=== PATIENT | male | born 1940 | race Caucasian/White ===

== ENCOUNTER 2017-11-17 08:32 | Emergency (ER) | payer BC, MEDICARE ==
[~2017-11-17] VITALS: Ht 180.3 cm; Wt 90.0 kg
[~2017-11-17 08:32] MED LIST: ATOR20TA PO; COU5T PO; DONE5TAB3 PO; METF-504 PO; UBID50TA3 PO; [UNRECOGNIZED DRUG - CODE] PO
[2017-11-17 09:19] LABS: BASOPHILS % (AUTO) 0.4 % (0-1); EOSINOPHILS % (AUTO) 0.3 % (0-6); HEMATOCRIT 40.3 % (42.0-52.0); HEMOGLOBIN 14.2 g/dl (14.0-17.9); LYMPHOCYTES # (AUTO) 0.7 X10'3 (1.1-4.8); LYMPHOCYTES % (AUTO) 10.4 % (21-51); MEAN CORPUSCULAR HGB CONC 35.2 % (33.0-36.5); MEAN CORPUSCULAR VOLUME 88.1 FL (78-98); MONOCYTES # (AUTO) 0.5 X10'3 (0-0.9); MONOCYTES % (AUTO) 6.7 % (2-12); NEUTROPHILS # (AUTO) 5.9 X10'3 (1.8-7.7); NEUTROPHILS % (AUTO) 82.2 % (42-75); PLATELET COUNT 165 X10'3 (140-440); RED BLOOD COUNT 4.57 X10'6 (4.70-6.10); RED CELL DISTRIBUTION WIDTH 13.7 % (11.5-14.5); WHITE BLOOD COUNT 7.2 X10'3 (4.5-11.0)
[2017-11-17 09:36] LABS: ALANINE AMINOTRANSFERASE 37 U/L (12-78); ALBUMIN 3.7 G/DL (3.4-5.0); ALBUMIN/GLOBULIN RATIO 1.2 (1.1-1.5); ALKALINE PHOSPHATASE 57 IU/L (46-116); ANION GAP 12 (8-16); ASPARTATE AMINO TRANSFERASE 25 U/L (10-37); BILIRUBIN,TOTAL 0.7 MG/DL (0.1-1.0); BLOOD UREA NITROGEN 17 MG/DL (7-18); BUN/CREATININE RATIO 12.1 (5.4-32.0); CHLORIDE 104 MMOL/L (99-107); CREATININE 1.41 MG/DL (0.60-1.10); GLUCOSE 106 MG/DL (70-104); POTASSIUM 4.1 MMOL/L (3.5-5.1); SODIUM 142 MMOL/L (135-145); TOTAL CARBON DIOXIDE 25.9 MMOL/L (24-32); TOTAL PROTEIN 6.9 G/DL (6.4-8.2); eGFR 49 ML/MIN
[2017-11-17 10:42] LABS: CLARITY,URINE CLEAR (Clear); COLOR,URINE DARK YELLOW (Yellow); GLUCOSE, URINE NEGATIVE (Neg); KETONES,URINE 15 mg/dl (Neg); LEUKOCYTE ESTERASE ,URINE NEGATIVE (Neg); NITRITES, URINE NEGATIVE (Neg); OCCULT BLOOD,URINE NEGATIVE (Neg); PH,URINE 5.5 (4.8-8.0); PROTEIN,URINE TRACE mg/dl (Neg); UA COLLECTION TYPE STRAIGHT CATH; UROBILINOGEN,URINE 0.2 E.U/dL (0.2-1.0)
[2017-11-17 10:48] LABS: BACTERIA,URINE NONE SEEN /HPF (Neg); MUCUS STRANDS FEW /LPF (Neg); RBC,URINE NONE SEEN /HPF (0-2); SQUAMOUS EPITHELIAL CELL,UR FEW /LPF (FEW); WBC,URINE NONE SEEN /HPF (0-4)
[2017-11-17] MEDS ORDERED: normal saline 1000ML IV soln IVB ONE (10:50)
[2017-11-17 14:42] VITALS: BP 150/58
== END 2017-11-17 14:54 | disposition home or self-care (01) ==
LOC: ER 08:33
DX: F03.90 Unspecified dementia, unspecified severity, without behavioral disturbance, psychotic disturbance, mood disturbance, and anxiety (principal); E86.0 Dehydration
CPT/HCPCS: 36415; 70450; 80053; 81001; 85025; 96360; 96361; 99285; A4353; J7030

== ENCOUNTER 2018-11-04 09:14 | Inpatient (IN) | payer MEDICARE | END 2018-11-13 15:16 | LOC: ER 09:14 → ED HOLD 15:22 → SUR 3N 20:20 | DX: J69.0 Pneumonitis due to inhalation of food and vomit (principal); G93.41 Metabolic encephalopathy; N17.9 Acute kidney failure, unspecified; N39.0 Urinary tract infection, site not specified; E86.0 Dehydration; I10 Essential (primary) hypertension; E78.5 Hyperlipidemia, unspecified; E11.51 Type 2 diabetes mellitus with diabetic peripheral angiopathy without gangrene; K59.00 Constipation, unspecified; G30.9 Alzheimer's disease, unspecified; F02.80 Dementia in other diseases classified elsewhere, unspecified severity, without behavioral disturbance, psychotic disturbance, mood disturbance, and anxiety ==

== ENCOUNTER 2019-11-09 23:50 | Inpatient (IN) | payer MEDICARE, MEDICAID ==
[~2019-11-09] VITALS: Ht 182.9 cm; Wt 75.7 kg
[~2019-11-09 23:50] MED LIST changes: +AREDS 2 PO; +CHOL10002 PO; -COU5T PO; +GLYB1TAB39 PO; +LISI-600 PO; +MEMA28CA PO; -METF-504 PO; -[UNRECOGNIZED DRUG - CODE] PO
[2019-11-10] MEDS ORDERED: CefTRIAXone 2gm/D5W 50ml 50 ML IV ONE
[2019-11-10] MEDS ORDERED: normal saline 1000ML IV soln IV ONE
[2019-11-10 00:50] LABS: BASOPHILS # (AUTO) 0.2 X10'3 (0-0.2); BASOPHILS % (AUTO) 0.8 % (0-1); EOSINOPHILS # (AUTO) 0.1 X10'3 (0-0.9); EOSINOPHILS % (AUTO) 0.4 % (0-6); HEMATOCRIT 45.4 % (42.0-52.0); HEMOGLOBIN 14.4 g/dl (14.0-17.9); LYMPHOCYTES # (AUTO) 1.3 X10'3 (1.1-4.8); LYMPHOCYTES % (AUTO) 6.3 % (21-51); MEAN CORPUSCULAR HEMOGLOBIN 29.9 PG (27.0-31.0); MEAN CORPUSCULAR HGB CONC 31.8 g/dL (33.0-36.5); MEAN CORPUSCULAR VOLUME 94.1 FL (78-98); MEAN PLATELET VOLUME 10.7 FL (7.4-10.4); MONOCYTES # (AUTO) 1.2 X10'3 (0-0.9); MONOCYTES % (AUTO) 6.2 % (2-12); NEUTROPHILS % (AUTO) 86.3 % (42-75); PLATELET COUNT 231 X10'3 (140-440); RED BLOOD COUNT 4.83 X10'6 (4.70-6.10); RED CELL DISTRIBUTION WIDTH 13.5 % (11.5-14.5); WHITE BLOOD COUNT 19.7 X10'3 (4.5-11.0)
[2019-11-10 00:58] LABS: ALANINE AMINOTRANSFERASE 38 U/L (12-78); ALBUMIN/GLOBULIN RATIO 0.8 (1.1-1.5); ALKALINE PHOSPHATASE 69 IU/L (46-116); ANION GAP 12 (8-16); ASPARTATE AMINO TRANSFERASE 20 U/L (10-37); BILIRUBIN,TOTAL 0.8 MG/DL (0.1-1.0); BLOOD UREA NITROGEN 72 MG/DL (7-18); BUN/CREATININE RATIO 27.8 (5.4-32.0); CALCIUM 9.2 MG/DL (8.5-10.1); CHLORIDE 113 MMOL/L (99-107); CREATININE 2.59 MG/DL (0.60-1.10); POTASSIUM 4.5 MMOL/L (3.5-5.1); SODIUM 149 MMOL/L (135-145); TOTAL CARBON DIOXIDE 23.8 MMOL/L (24-32); TOTAL PROTEIN 6.7 G/DL (6.4-8.2); eGFR 24 ML/MIN
[2019-11-10 01:01] LABS: PARTIAL THROMBOPLASTIN TIME 20 SECONDS (22-32)
[2019-11-10 01:12] LABS: GLUCOSE 919 MG/DL (70-104)
[2019-11-10] MEDS ORDERED: potassium CL 20mEq in D5-1/2NS 1,000 ML IV PRN (01:33)
[2019-11-10] MEDS ORDERED: potassium CL 10mEq/100ml bag 100 ML IV PRN ×2 (01:35)
[2019-11-10] MEDS ORDERED: sodium phosphate inj. 15 MMOL in dextrose 5%-water 250 ML IV PRN (01:35)
[2019-11-10] MEDS ORDERED: insulin regular, human vial - multi-dose IV PRN (01:35)
[2019-11-10] MEDS ORDERED: potassium Cl 20 mEq SR tablet PO PRN (01:35)
[2019-11-10] MEDS ORDERED: sodium phosphate inj. 30 MMOL in dextrose 5%-water 250 ML IV PRN (01:35)
[2019-11-10] MEDS ORDERED: Neutra Phos packet PO PRN (01:35)
[2019-11-10] MEDS ORDERED: insulin regular, human 10 units/0.1 ml syringe IV ONE ×2 (01:55→04:15)
[2019-11-10] MEDS: Insulin Reg/NS 100units/100mL 100 ML IV SCH ×2 (02:04→15:42)
[2019-11-10 02:15] LABS: MAGNESIUM 2.7 MG/DL (1.5-2.4); PHOSPHORUS 4.3 MG/DL (2.3-4.5)
[2019-11-10 02:17] LABS: CLARITY,URINE CLEAR (Clear); COLOR,URINE YELLOW (Yellow); GLUCOSE, URINE >=1000 mg/dl (Neg); KETONES,URINE NEGATIVE (Neg); LEUKOCYTE ESTERASE ,URINE NEGATIVE (Neg); NITRITES, URINE NEGATIVE (Neg); OCCULT BLOOD,URINE NEGATIVE (Neg); PH,URINE 5.5 (4.8-8.0); PROTEIN,URINE NEGATIVE (Neg); UROBILINOGEN,URINE 0.2 E.U/dL (0.2-1.0)
[2019-11-10 02:20] LABS: UA COLLECTION TYPE STRAIGHT CATH
[2019-11-10 02:29] LABS: BACTERIA,URINE NONE SEEN /HPF (Neg); MUCUS STRANDS NONE SEEN /LPF (Neg); RBC,URINE 0-2 /HPF (0-2); SQUAMOUS EPITHELIAL CELL,UR NONE SEEN /LPF (FEW); WBC,URINE 0-4 /HPF (0-4)
[2019-11-10] MEDS ORDERED: fentaNYL/PF 50MCG/1 ML 2ML syringe IV ONE (02:30)
--- NOTE | 2019-11-10 02:59 | NUR ---
Spoke with Emilie at [facility]. Pt has not been on medications for diabetes, or had regular blood sugar checks since November 2018. Pt also takes pills crushed in applesauce or pudding.
[2019-11-10] MEDS ORDERED: normal saline 1000ml 1,000 ML IVB ONE (03:17)
[2019-11-10] MEDS ORDERED: mag hydrox/Alum hydrox/simeth 30ml oral suspension PO PRN (03:20)
[2019-11-10] MEDS ORDERED: magnesium hydroxide 30ml (MOM) UD suspension PO PRN (03:20)
[2019-11-10] MEDS ORDERED: acetaminophen 325mg tablet PO PRN (03:20)
[2019-11-10] MEDS ORDERED: ondansetron/PF 4mg/2ml inj IV PRN (03:20)
[2019-11-10] MEDS ORDERED: dextrose 50%-water 50ml dispensing syringe IV PRN ×2 (03:25)
[2019-11-10] MEDS ORDERED: MESSAGE TO PHARMACY PO ONE (03:25)
[2019-11-10] MEDS ORDERED: glucagon, human recombinant 1mg kit SUBCUT PRN (03:25)
[2019-11-10] MEDS ORDERED: dextrose ORAL solution 15 GM/59 ML bottle PO PRN ×2 (03:25)
[2019-11-10] MEDS: normal saline 1000ml 1,000 ML IV SCH ×3 (05:58→23:19)
--- NOTE | 2019-11-10 06:20 | NUR ---
PT'S SON ARRIVES AT BEDSIDE.
--- NOTE | 2019-11-10 06:52 | NUR ---
Patient in room ED 14. I have received report from GRAYSON Townsend and had the opportunity to ask questions. Awaiting pt's arrival to PCU room 3025Y.
--- NOTE | 2019-11-10 07:10 | NUR ---
Pt arrived via gurney from ED with pt's son at bedside. Pt transferred in to bed using yessenia tube with 4 person assist. Vital signs obtained. Pt arrived wearing brief wet with urine, gina care performed. Will continue to closely monitor.
[2019-11-10 07:25] VITALS: BP 95/59
[2019-11-10] MEDS: K and/or MAG REPLACEMENT MC SCH ×2 (08:00→19:05)
[2019-11-10] MEDS ORDERED: AREDS PO SCH (08:00)
[2019-11-10] MEDS: vitamin D (cholecalciferol) 1,000 unit tablet PO SCH (08:55)
[2019-11-10] MEDS: donepezil 5mg tablet PO SCH (08:55)
[2019-11-10] MEDS: heparin, porcine 5000 units/ml vial SQ SCH ×2 (08:55→19:30)
--- NOTE | 2019-11-10 09:45 | NUR ---
Dr. Nielson at bedside. Orders received for pureed diet, wound care consult, social work program coordinator consult. MD discussed code status with pt's son, MD stated she would change pt's code status from full to DNR.
[2019-11-10 11:00] VITALS: BP 106/55
--- NOTE | 2019-11-10 12:04 | NUR ---
Glucometer not scanning, downtime form utilized from [id number], results faxed to lab.
[2019-11-10] MEDS ORDERED: HYDR-3965 PO (13:06)
[2019-11-10] MEDS ORDERED: SENN1TAB61 PO (13:07)
[2019-11-10] MEDS ORDERED: ACET-895 PO (13:10)
[2019-11-10] MEDS ORDERED: LACT1CAP65 PO (13:10)
[2019-11-10] MEDS ORDERED: [UNRECOGNIZED DRUG - CODE] EACHEYE (13:16)
--- NOTE | 2019-11-10 13:48 | NUR ---
Performed bladder scan on pt, 557mL urine found. Will notify MD. No voids since arriving on floor at 0710.
[2019-11-10 15:00] VITALS: BP 123/60
--- NOTE | 2019-11-10 15:02 | NUR ---
DM Consult: A1C 9.6. Pt admit w/ GLU 919 from [facility] not receiving insulin hx T2DM DX hyperosmolar hyperglycemia per MD. On insulin drip w/ GLU down to 153 from admit. Placed on carb controlled/pureed diet hx pureed diet at [facility] per EMR. RD recommended ASSEMBLER DC FIELD RING BSS given hx. PO 25% first meal this AM. Pending physical assessment. Pt not appropriate for DM ed given hx. Will continue to monitor. Rec: 1. continue carb controlled/pureed diet; pending ASSEMBLER DC FIELD RING BSS recs 2. monitor for ONS needs pending PO hx 3. bowel care as needed 4. wt per rx Addendum: 11/10/19 at [address] Amended: Links added.
--- NOTE | 2019-11-10 18:14 | NUR ---
Problems reprioritized. Patient report given, questions answered & plan of care reviewed with GRAYSON Pitts.
--- NOTE | 2019-11-10 18:35 | NUR ---
Patient in room PCU 3022Q. I have received report from GRAYSON Pope and had the opportunity to ask questions and assume patient care. Insulin gtt infusing at 3.5 mL/hr, NS infusing at 100 mL/hr per provider order. Will continue to monitor closely.
[2019-11-10 18:58] VITALS: BP 113/59
[2019-11-10] MEDS: lactobacillus rhamnosus 10,000 MMU CELLS/CAPSULE PO SCH (19:31)
[2019-11-10] MEDS: lisinopril 5mg tablet PO SCH (19:31)
[2019-11-10] MEDS: atorvastatin 20mg tablet PO SCH (20:34)
[2019-11-10] MEDS ORDERED: VIT1CAPS46 PO (20:47)
[2019-11-10] MEDS ORDERED: insulin glargine (Lantus) pen - multi-dose SQ SCH (21:00)
[2019-11-10 23:00] VITALS: BP 119/60
[2019-11-11] VITALS (7 sets, daily range): BP systolic 96–154; BP diastolic 43–86
[2019-11-11] MEDS: CefTRIAXone 2gm/D5W 50ml 50 ML IV SCH (00:42)
[2019-11-11 06:00] LABS: BASOPHILS # (AUTO) 0.1 X10'3 (0-0.2); BASOPHILS % (AUTO) 0.5 % (0-1); EOSINOPHILS # (AUTO) 0.4 X10'3 (0-0.9); HEMATOCRIT 34.6 % (42.0-52.0); HEMOGLOBIN 11.7 g/dl (14.0-17.9); LYMPHOCYTES # (AUTO) 1.9 X10'3 (1.1-4.8); LYMPHOCYTES % (AUTO) 16.2 % (21-51); MEAN CORPUSCULAR HEMOGLOBIN 30.4 PG (27.0-31.0); MEAN CORPUSCULAR HGB CONC 33.8 g/dL (33.0-36.5); MEAN PLATELET VOLUME 10.6 FL (7.4-10.4); MONOCYTES # (AUTO) 0.6 X10'3 (0-0.9); MONOCYTES % (AUTO) 5.2 % (2-12); NEUTROPHILS # (AUTO) 8.7 X10'3 (1.8-7.7); NEUTROPHILS % (AUTO) 75.1 % (42-75); PLATELET COUNT 144 X10'3 (140-440); RED BLOOD COUNT 3.84 X10'6 (4.70-6.10); RED CELL DISTRIBUTION WIDTH 13.4 % (11.5-14.5); WHITE BLOOD COUNT 11.6 X10'3 (4.5-11.0)
[2019-11-11 06:07] LABS: ALANINE AMINOTRANSFERASE 26 U/L (12-78); ALBUMIN/GLOBULIN RATIO 0.6 (1.1-1.5); ALKALINE PHOSPHATASE 44 IU/L (46-116); ANION GAP 6 (8-16); ASPARTATE AMINO TRANSFERASE 35 U/L (10-37); BILIRUBIN,TOTAL 0.2 MG/DL (0.1-1.0); BLOOD UREA NITROGEN 34 MG/DL (7-18); BUN/CREATININE RATIO 24.1 (5.4-32.0); CALCIUM 7.8 MG/DL (8.5-10.1); CHLORIDE 126 MMOL/L (99-107); CREATININE 1.41 MG/DL (0.60-1.10); GLUCOSE 153 MG/DL (70-104); POTASSIUM 3.3 MMOL/L (3.5-5.1); TOTAL PROTEIN 5.2 G/DL (6.4-8.2); eGFR 49 ML/MIN
[2019-11-11 06:10] LABS: SODIUM 158 MMOL/L (135-145)
--- NOTE | 2019-11-11 06:14 | NUR ---
Patient in room PCU 3026. I have received report from GRAYSON Pitts and had the opportunity to ask questions and assume patient care.
--- NOTE | 2019-11-11 06:15 | NUR ---
PAGER ID: [phone] MESSAGE: Ext. [phone], GRAYSON Pitts. [id number] 78 yo M admitted for metabolic encephalopathy has critical sodium of 150. NS infusing at 100 mL/hr and insulin at 3 U/hr. Do you want to increase the NS?
[2019-11-11] MEDS ORDERED: glucagon, human recombinant 1mg kit SUBCUT PRN (06:30)
[2019-11-11] MEDS ORDERED: dextrose ORAL solution 15 GM/59 ML bottle PO PRN ×2 (06:30)
[2019-11-11] MEDS ORDERED: insulin Lispro (HumaLOG) vial - multi-dose SQ SCH (06:30)
[2019-11-11] MEDS ORDERED: dextrose 50%-water 50ml dispensing syringe IV PRN ×2 (06:30)
[2019-11-11] MEDS: lisinopril 5mg tablet PO SCH ×2 (08:00→20:00)
[2019-11-11] MEDS: K and/or MAG REPLACEMENT MC SCH ×2 (08:00→20:00)
[2019-11-11] MEDS: heparin, porcine 5000 units/ml vial SQ SCH ×2 (08:47→20:41)
[2019-11-11] MEDS: lactobacillus rhamnosus 10,000 MMU CELLS/CAPSULE PO SCH ×2 (08:47→20:41)
[2019-11-11] MEDS: potassium Cl 20 mEq SR tablet PO PRN ×3 (08:47→20:43)
[2019-11-11] MEDS: vitamin D (cholecalciferol) 1,000 unit tablet PO SCH (08:47)
[2019-11-11] MEDS: donepezil 5mg tablet PO SCH (08:47)
--- NOTE | 2019-11-11 08:58 | NUR ---
Humalog insulin on hold when scanned. Called and spoke to pharmacist Rick to determine why it was held, insulin infusion protocol for PCU states to administer HumaLog after pt eats meals. Pharmacist stated he would remove the hold.
[2019-11-11] MEDS: normal saline 1000ml 1,000 ML IV SCH (09:19)
[2019-11-11] MEDS: insulin Lispro (HumaLOG) vial - multi-dose SQ SCH ×3 (09:19→18:52)
--- NOTE | 2019-11-11 10:05 | NUR ---
Dr. Nielson at bedside. informed of elevated sodium level. Orders received to change IV fluids from NS to D5W at 100mL/hr and to keep pt on insulin gtt.
[2019-11-11] MEDS: dextrose 5%-water 1,000 ML IV SCH ×3 (10:37→22:21)
--- NOTE | 2019-11-11 15:38 | NUR ---
Michael trigger: Pt documented with michael of 12, no edema, skin intact. Pt eating fair on pureed carb controlled diet with nectar thick liquids, PO intake 50-75% avg meals with max assist. Pt currently documented as confused and AOx1, likely contributing to fluctuating PO intake. LBM 2/10. Will continue to follow. DM Consult: A1C 9.6. Pt admit w/ GLU 919 from [facility] not receiving insulin hx T2DM DX hyperosmolar hyperglycemia per MD. On insulin drip w/ GLU down to 153 from admit. Placed on carb controlled/pureed diet hx pureed diet at [facility] per EMR. RD recommended BILINGUAL EXECUTIVE ASSISTANT BSS given hx. PO 25% first meal this AM. Pending physical assessment. Pt not appropriate for DM ed given hx. Will continue to monitor. Rec: 1. continue carb controlled/pureed diet with nectar thick liquids per ST recs 2. monitor for ONS needs 3. bowel care as needed 4. wt per rx Addendum: 11/11/19 at 1538 by Wing Danielle LARA Amended: Links added. Addendum: 11/11/19 at [address] RD Approves
--- NOTE | 2019-11-11 16:05 | NUR ---
Calderon Nielson re converting pt from insulin gtt to hyperglycemic protocol. Per insulin gtt protocol, after pt eating for 24 hours, discontinuing insulin gtt to be considered. PAGER ID: [phone] MESSAGE: Pt Kan Velasquez in [id number]. Consider D/C insulin gtt & putting on diabetic protocol now? thanks! Toshia GALICIA [phone] Addendum: 11/11/19 at 1701 by Heather Flores RN Dr. Nielson telephoned back. Order received to continue insulin gtt and D5W.
[2019-11-11] MEDS: memantine hcl 7mg SR capsule (24-hr) PO SCH (16:19)
[2019-11-11] MEDS: tetrahydrozoline 0.05% 15ml ophthalmic drops EACHEYE SCH ×2 (16:19→21:59)
--- NOTE | 2019-11-11 16:19 | NUR ---
Memantine & eye gtts administered late due to late arrival from pharmacy.
[2019-11-11] MEDS: Insulin Reg/NS 100units/100mL 100 ML IV SCH ×2 (17:33→22:18)
--- NOTE | 2019-11-11 18:05 | NUR ---
Patient in room PCU 3022w. I have received report from GRAYSON Pope and had the opportunity to ask questions and assume patient care. Patient on 2L NC and stable at this time. Insulin gtt infusing at 6.4 per standard insulin protocol. Will continue to monitor closely.
--- NOTE | 2019-11-11 18:13 | NUR ---
Problems reprioritized. Patient report given, questions answered & plan of care reviewed with GRAYSON Pitts.
[2019-11-11] MEDS ORDERED: [UNRECOGNIZED DRUG - OTHER] PO SCH (20:00)
[2019-11-11] MEDS: atorvastatin 20mg tablet PO SCH (20:42)
[2019-11-11] MEDS: acetaminophen 325mg tablet PO SCH (20:42)
[2019-11-11] MEDS ORDERED: insulin glargine (Lantus) pen - multi-dose SQ SCH (21:00)
[2019-11-11] MEDS ORDERED: sennosides/docusate sodium tablet PO SCH (21:00)
[2019-11-11] MEDS ORDERED: HYDROcodone/acetaminophen 5mg/325mg tablet PO SCH (21:00)
--- NOTE | 2019-11-11 22:01 | NUR ---
Per standard insulin gtt protocol, LANTUS to be started 24 hours after beginning to eat. 24 hour mode passed at noon today; per Dr. Nielson, will keep on insulin gtt, as stated by day shift RN. Did not administer 2100 dose of Lantus per protocol/ provider. Will continue to monitor closely.
--- NOTE | 2019-11-12 | NUR ---
PAGER ID: [phone] MESSAGE: Ext. [phone], GRAYSON Pitts for [id number] 78 y/o M admitted for metabolic encephalopathy. On insulin gtt at 11 U/hr c D5w at 100 mL/hr. Critical blood glucose of 39. Stopped drip and pushed 50 mL d50
[2019-11-12] MEDS: CefTRIAXone 2gm/D5W 50ml 50 ML IV SCH (00:33)
[2019-11-12 02:47] VITALS: BP 126/66
[2019-11-12 04:52] LABS: BASOPHILS # (AUTO) 0.1 X10'3 (0-0.2); BASOPHILS % (AUTO) 0.7 % (0-1); EOSINOPHILS # (AUTO) 0.3 X10'3 (0-0.9); EOSINOPHILS % (AUTO) 3.4 % (0-6); HEMATOCRIT 32.4 % (42.0-52.0); HEMOGLOBIN 11.2 g/dl (14.0-17.9); LYMPHOCYTES # (AUTO) 2.1 X10'3 (1.1-4.8); LYMPHOCYTES % (AUTO) 23.9 % (21-51); MEAN CORPUSCULAR HEMOGLOBIN 30.8 PG (27.0-31.0); MEAN CORPUSCULAR HGB CONC 34.6 g/dL (33.0-36.5); MEAN PLATELET VOLUME 10.2 FL (7.4-10.4); MONOCYTES # (AUTO) 0.4 X10'3 (0-0.9); MONOCYTES % (AUTO) 5.1 % (2-12); NEUTROPHILS # (AUTO) 5.8 X10'3 (1.8-7.7); NEUTROPHILS % (AUTO) 66.9 % (42-75); PLATELET COUNT 125 X10'3 (140-440); RED BLOOD COUNT 3.64 X10'6 (4.70-6.10); WHITE BLOOD COUNT 8.7 X10'3 (4.5-11.0)
[2019-11-12 05:16] LABS: ALANINE AMINOTRANSFERASE 23 U/L (12-78); ALBUMIN 1.8 G/DL (3.4-5.0); ALBUMIN/GLOBULIN RATIO 0.6 (1.1-1.5); ALKALINE PHOSPHATASE 41 IU/L (46-116); ANION GAP 8 (8-16); ASPARTATE AMINO TRANSFERASE 26 U/L (10-37); BILIRUBIN,TOTAL 0.2 MG/DL (0.1-1.0); BLOOD UREA NITROGEN 23 MG/DL (7-18); BUN/CREATININE RATIO 21.5 (5.4-32.0); CALCIUM 7.6 MG/DL (8.5-10.1); CHLORIDE 119 MMOL/L (99-107); CREATININE 1.07 MG/DL (0.60-1.10); GLUCOSE 125 MG/DL (70-104); POTASSIUM 3.4 MMOL/L (3.5-5.1); SODIUM 149 MMOL/L (135-145); TOTAL CARBON DIOXIDE 22.3 MMOL/L (24-32); TOTAL PROTEIN 4.9 G/DL (6.4-8.2); eGFR 67 ML/MIN
--- NOTE | 2019-11-12 06:36 | NUR ---
Problems reprioritized. Patient report given, questions answered & plan of care reviewed with GRAYSON García and Donna Student Nurse.
[2019-11-12 07:00] VITALS: BP 114/69
--- NOTE | 2019-11-12 07:49 | NUR ---
Page sent to Dr. Busch regarding patients hand PAGER ID: [phone] MESSAGE: re [phone] Kan Velasquez Pts right hand swollen, discolored, cool to touch, pulses unequal. Can you please come evaluate? Raquel Uribe [phone] Addendum: 11/12/19 at 0757 by Raquel Zacarias RN New telephone order for arterial ultrasound.
[2019-11-12] MEDS: K and/or MAG REPLACEMENT MC SCH (08:00)
[2019-11-12] MEDS: lactobacillus rhamnosus 10,000 MMU CELLS/CAPSULE PO SCH (09:04)
[2019-11-12] MEDS: insulin Lispro (HumaLOG) vial - multi-dose SQ SCH ×2 (09:05→13:15)
[2019-11-12] MEDS: heparin, porcine 5000 units/ml vial SQ SCH (09:06)
[2019-11-12] MEDS: tetrahydrozoline 0.05% 15ml ophthalmic drops EACHEYE SCH ×2 (09:06→13:15)
[2019-11-12] MEDS: acetaminophen 325mg tablet PO SCH (09:06)
[2019-11-12] MEDS: lisinopril 5mg tablet PO SCH (09:07)
[2019-11-12] MEDS: memantine hcl 7mg SR capsule (24-hr) PO SCH (09:07)
[2019-11-12] MEDS: vitamin D (cholecalciferol) 1,000 unit tablet PO SCH (09:07)
[2019-11-12] MEDS: donepezil 5mg tablet PO SCH (09:07)
[2019-11-12 11:00] VITALS: BP 154/41
--- NOTE | 2019-11-12 12:50 | NUR ---
Patient report called to [facility], spoke with Nurse, Emilie.
[2019-11-12 15:00] VITALS: BP 143/46
[2019-11-12] MEDS: dextrose 5%-water 1,000 ML IV SCH (16:25)
--- NOTE | 2019-11-12 18:00 | NUR ---
PAGER ID: [phone] MESSAGE: re [phone] Cory Salinas Pt's current PIV is not working and he is refusing another one to be placed. He is on a Heparin gtt. Thanks, Raquel [phone]
--- NOTE | 2019-11-12 18:08 | NUR ---
Patient stable for transfer per MD. Report called to nurse at [facility]. Patient transported off unit via gurney by Mariaelena Cargo. All personal belongings sent with patient.
== END 2019-11-12 18:16 | DRG 637 ==
LOC: ER 23:51 → ED HOLD 11-10 03:19 → PCU 3S 11-10 07:10
PROVIDERS: ADMIT Family Medicine; ATTEND Family Medicine
DX: E11.00 Type 2 diabetes mellitus with hyperosmolarity without nonketotic hyperglycemic-hyperosmolar coma (NKHHC) (principal); G93.41 Metabolic encephalopathy; N17.0 Acute kidney failure with tubular necrosis; R65.20 Severe sepsis without septic shock; E87.1 Hypo-osmolality and hyponatremia; E86.0 Dehydration; I12.9 Hypertensive chronic kidney disease with stage 1 through stage 4 chronic kidney disease, or unspecified chronic kidney disease; E11.22 Type 2 diabetes mellitus with diabetic chronic kidney disease; E78.5 Hyperlipidemia, unspecified; G30.9 Alzheimer's disease, unspecified; F02.80 Dementia in other diseases classified elsewhere, unspecified severity, without behavioral disturbance, psychotic disturbance, mood disturbance, and anxiety; N18.9 Chronic kidney disease, unspecified; M19.90 Unspecified osteoarthritis, unspecified site; Z98.49 Cataract extraction status, unspecified eye; Z79.899 Other long term (current) drug therapy; Z79.84 Long term (current) use of oral hypoglycemic drugs
CPT/HCPCS: 36415; 71045; 80053; 81001; 82948; 83036; 83605; 83735; 84100; 84145; 85025; 85610; 85730; 87040; 87081; 92508; 92616; 93005; 93931; 93971; 96374; 96375; 99285; G0378; J0696; J1644; J1815; J3010; J7030; J7070